=== PATIENT | male | born 1995 | race Caucasian/White ===

== ENCOUNTER 2020-02-03 22:40 | Emergency (ER) | payer OTHER, SELFPAY ==
[2020-02-03 23:21] LABS: Bacteria/HPF None Seen HPF (None Seen); Bilirubin Negative (Negative); Blood, Urine Negative (Negative); Clarity Clear (Clear); Glucose, Urine (Dipstick) Normal (Negative); Ketone, Urine Negative (Negative); Leukocyte 250 Leu/uL (Negative); Nitrite Negative (Negative); Protein, Urine (Dipstick) 20 mg/dL (Neg-Trace); Specific Gravity, Urine 1.039 (1.002-1.036); Squamous Epithelial None Seen HPF (0-3); WBC/HPF Greater than 50 HPF (0-3)
[2020-02-03] MEDS ORDERED: Azithromycin 250 MG TAB ONE (23:21)
[2020-02-03] MEDS ORDERED: cefTRIAXone\\ROCEPHIN 250 MG VIAL ONE (23:21)
[2020-02-03] MEDS ORDERED: Lidocaine 1% PF 5 ML VIAL ONE (23:22)
[2020-02-04 22:55] LABS: Chlamydia by PCR Not Detected (NotDetected); GC by PCR DETECTED (NotDetected)
== END 2020-02-03 23:44 | disposition home or self-care (01) ==
LOC: ERS 22:40
DX: N34.2 Other urethritis (principal); Z20.2 Contact with and (suspected) exposure to infections with a predominantly sexual mode of transmission; G43.909 Migraine, unspecified, not intractable, without status migrainosus; Z87.891 Personal history of nicotine dependence
CPT/HCPCS: 81003; 81015; 87491; 87591; 96372; 99283; J0696

== ENCOUNTER 2021-02-19 07:27 | Emergency (ER) | payer SELFPAY ==
[2021-02-19 08:24] LABS: #Eosinphils 0.1 thou/uL (0.0-0.7); #Lymphocytes 1.5 thou/uL (1.20-3.40); #Monocytes 0.3 thou/uL (0.11-0.59); #Neutrophils 1.9 thou/uL (1.40-6.50); %Basophils 0.6 % (0.0-1.0); %Eosinophils 1.4 % (0.0-10.0); %Lymphocytes 40.1 % (21.0-51.0); %Monocytes 6.8 % (0.0-10.0); %Neutrophils 51.2 % (42.0-75.0); Hemoglobin 13.6 g/dL (14.0-18.0); Mean Corpuscular Hemoglobin 32.9 pg (27.0-31.0); Mean Corpuscular Volume 96.8 fL (78.0-98.0); Mean Platelet Volume 8.3 fL (7.4-10.4); Platelet Count 185 thou/uL (130-400); RBC Distribution Width 11.5 % (11.5-14.5); Red Blood Cell (RBC) Count 4.12 mill/uL (4.70-6.10); White Blood Cell (WBC) Count 3.8 thou/uL (4.8-10.8)
[2021-02-19 08:45] LABS: ALT (SGPT) 13 U/L (8-55); AST (SGOT) 11 U/L (5-34); Albumin 3.9 g/dL (3.5-5.0); Alkaline Phosphatase 56 U/L (40-110); Anion Gap 10 mmol/L (10-20); BUN (Urea Nitrogen) 18 mg/dL (8.9-20.6); Bilirubin, Total 0.4 mg/dL (0.2-1.2); Calc. Creatinine Clearance 0 mL/min (70-130); Carbon Dioxide 27 mmol/L (22-29); Chloride 105 mmol/L (98-107); Globulin 2.5 g/dL (2.4-3.5); Glucose 94 mg/dL (70-105); Lipase 22 U/L (8-78); Potassium 3.7 mmol/L (3.5-5.1); Protein, Total 6.4 g/dL (6.0-8.3); Sodium 138 mmol/L (136-145)
[2021-02-19 10:19] LABS: Bilirubin Negative (Negative); Blood, Urine Negative (Negative); Clarity Clear (Clear); Glucose, Urine (Dipstick) Normal (Negative); Ketone, Urine Negative (Negative); Leukocyte Negative Leu/uL (Negative); Nitrite Negative (Negative); Protein, Urine (Dipstick) 30 mg/dL (Neg-Trace); RBC/HPF 0-3 HPF (0-3); Specific Gravity, Urine 1.035 (1.002-1.036); Urobilinogen Normal mg/dL (Less than 2)
[2021-02-19 10:20] LABS: Bacteria/HPF None Seen HPF (None Seen); Sperm/HPF 2+ HPF (None Seen); Squamous Epithelial 0-3 HPF (0-3); WBC/HPF 0-3 HPF (0-3)
[2021-02-19 19:08] LABS: SARS-CoV-2 PCR by NAA DETECTED (NotDetected)
== END 2021-02-19 10:56 | disposition home or self-care (01) ==
LOC: ERS 07:27
DX: U07.1 COVID-19 (principal); G43.909 Migraine, unspecified, not intractable, without status migrainosus; Z87.891 Personal history of nicotine dependence
CPT/HCPCS: 36415; 80053; 81003; 81015; 83690; 85025; 99284; U0003; U0005

== ENCOUNTER 2021-03-14 16:49 | Emergency (ER) | payer SELFPAY ==
[2021-03-14] MEDS ORDERED: Ibuprofen 800 MG TAB ONE (18:53)
== END 2021-03-14 18:57 | disposition home or self-care (01) ==
LOC: ERS 16:49
DX: S63.501A Unspecified sprain of right wrist, initial encounter (principal); X50.0XXA Overexertion from strenuous movement or load, initial encounter; Y99.0 Civilian activity done for income or pay

== ENCOUNTER 2021-03-31 04:12 | Emergency (ER) | payer SELFPAY ==
[2021-03-31] MEDS ORDERED: Metoclopramide HCl 10 MG/2 ML VIAL ONE (05:52)
[2021-03-31] MEDS ORDERED: Ketorolac Tromethamine 30 MG/ML VIAL ONE (05:52)
[2021-03-31] MEDS ORDERED: diphenhydrAMINE 50 MG/ML VIAL ONE (05:52)
== END 2021-03-31 07:10 | disposition home or self-care (01) ==
LOC: ERS 04:12
DX: R51.9 Headache, unspecified (principal)
CPT/HCPCS: 96365; 96375; J1200; J1885; J2765

== ENCOUNTER 2021-04-02 18:08 | Emergency (ER) | payer SELFPAY ==
[2021-04-02 23:15] LABS: SARS-CoV-2 PCR by NAA DETECTED (NotDetected)
== END 2021-04-02 18:33 | disposition home or self-care (01) ==
LOC: ERS 18:08
DX: U07.1 COVID-19 (principal)
CPT/HCPCS: 99283; U0003; U0005

== ENCOUNTER 2021-07-05 16:20 | Emergency (ER) | payer SELFPAY | END 2021-07-05 19:45 | disposition home or self-care (01) | LOC: ERS 16:20 | DX: L03.213 Periorbital cellulitis (principal) | CPT/HCPCS: 70481 ==

== ENCOUNTER 2021-07-25 13:40 | Emergency (ER) | payer BC ==
[2021-07-26 15:46] LABS: SARS-CoV-2 PCR by NAA Not Detected (NotDetected)
== END 2021-07-25 16:35 | disposition home or self-care (01) ==
LOC: ERS 13:40
DX: R21 Rash and other nonspecific skin eruption (principal); R19.7 Diarrhea, unspecified; Z20.822 Contact with and (suspected) exposure to COVID-19
CPT/HCPCS: 99284; U0003; U0005

== ENCOUNTER 2022-01-02 16:25 | Emergency (ER) | payer BC ==
[2022-01-02] MEDS ORDERED: Ketorolac Tromethamine 30 MG/ML VIAL ONE (17:39)
[2022-01-02] MEDS ORDERED: diphenhydrAMINE 25 MG CAP ONE (17:39)
[2022-01-02] MEDS ORDERED: Metoclopramide HCl 10 MG TAB ONE (17:39)
[2022-01-02] MEDS ORDERED: Acetaminophen 500 MG TAB ONE (17:39)
== END 2022-01-02 17:53 | disposition home or self-care (01) ==
LOC: ERS 16:25
DX: R51.9 Headache, unspecified (principal)
CPT/HCPCS: 96372; 99283; J1885

== ENCOUNTER 2022-09-10 10:14 | Outpatient (CLI) | payer BC | END 2022-09-10 10:15 | disposition home or self-care (01) | LOC: RAD-FRANK 10:14 | PROVIDERS: ATTEND Nurse Practitioner Family | DX: M54.50 Low back pain, unspecified (principal) | CPT/HCPCS: 72100 ==

== ENCOUNTER 2022-11-04 12:28 | Emergency (ER) | payer OTHER, BC ==
[2022-11-04] MEDS ORDERED: Boostrix 0.5 ML (Tdap) VIAL (>/=7 yrs of age) ONE (12:59)
[2022-11-04] MEDS ORDERED: Acetaminophen 500 MG TAB ONE (14:34)
== END 2022-11-04 15:54 | disposition home or self-care (01) ==
LOC: ERS 12:28
DX: M79.671 Pain in right foot (principal); Y92.89 Other specified places as the place of occurrence of the external cause; Z23 Encounter for immunization
CPT/HCPCS: 90471; 90715

== ENCOUNTER 2022-12-26 11:24 | Emergency (ER) | payer BC | END 2022-12-26 12:08 | disposition home or self-care (01) | LOC: ERS 11:24 | DX: J02.9 Acute pharyngitis, unspecified (principal) | CPT/HCPCS: 99283 ==